=== PATIENT | female | born 1995 | race Caucasian/White ===

== ENCOUNTER 2017-02-23 08:02 | Emergency (ER) | payer OTHER ==
[~2017-02-23] VITALS: Ht 170.2 cm; Wt 104.3 kg
[2017-02-23 08:14] VITALS: BP 131/75
--- NOTE | 2017-02-23 08:20 | NUR ---
Note undone in EDM - 02/23/17 at 0832 by CRISTAL 21 F BIB SELF C/O INTERMITTENT "PRESSURE" MIDSTERNAL NON RADIATING CHEST PAIN X2 HOURS; PT STATES THE CP STARTED AT 0600, AND WAS AT 7/10, BUT CURRENTLY IS 0/10; PT ALSO C/O MILD SOB BEFORE ARRIVAL BUT CURRENTLY DENIES SOB NOW; PT DENIES ANY RECENT INJURY OR TRAUMA; DENIES N/V/D; SKIN IS PINK/WARM/DRY; AAOX4 WITH EVEN AND STEADY GAIT; LUNGS CLEAR BL; HR EVEN AND REGULAR; RR ARE EVEN AND UNLABORED; PT DENIES ANY FEVER OR COUGH AT THIS TIME; PATIENT STATES PAIN OF 0/10 AT THIS TIME; VSS; PATIENT POSITIONED FOR COMFORT; HOB ELEVATED; BED DOWN; ALL NEEDS MET AT THIS TIME; WILL CONTINUE TO MONITOR
--- NOTE | 2017-02-23 08:21 | NUR ---
Patient ambulated to bed 07.
--- NOTE | 2017-02-23 08:23 | NUR ---
21 F BIB SELF C/O INTERMITTENT "PRESSURE" MIDSTERNAL NON RADIATING CHEST PAIN X2 HOURS; PT STATES THE CP STARTED AT 0600, AND WAS AT 7/10, BUT CURRENTLY IS 0/10; PT ALSO C/O MILD SOB BEFORE ARRIVAL BUT CURRENTLY DENIES SOB NOW; PT DENIES ANY RECENT INJURY OR TRAUMA; DENIES N/V/D; SKIN IS PINK/WARM/DRY; AAOX4 WITH EVEN AND STEADY GAIT; LUNGS CLEAR BL; HR EVEN AND REGULAR; RR ARE EVEN AND UNLABORED; PT DENIES ANY FEVER OR COUGH AT THIS TIME; PATIENT STATES PAIN OF 0/10 AT THIS TIME; VSS; PATIENT POSITIONED FOR COMFORT; HOB ELEVATED; BED DOWN; ALL NEEDS MET AT THIS TIME; WILL CONTINUE TO MONITOR
--- NOTE | 2017-02-23 08:25 | NUR ---
Dr. Mcfadden evaluating patient at bedside.
--- NOTE | 2017-02-23 08:31 | NUR ---
PT TO XRAY VIA W/C WITH COAL HAULER
--- NOTE | 2017-02-23 08:48 | NUR ---
PT RETURNED FROM XRAY VIA W/C ACCOMPANIED BY PRODUCTION ASSEMBLY SUPERVISOR
[2017-02-23 08:51] LABS: HEMATOCRIT 43.9 % (36-48); HEMOGLOBIN 14.4 g/dL (12.0-16.0); MEAN CORPUSCULAR HEMOGLOBIN 31 pg (27-31); MEAN CORPUSCULAR HGB CONC 33 g/dL (33-37); MEAN CORPUSCULAR VOLUME 94 fL (80-94); PLATELET COUNT (AUTO) 209 K/uL (140-450); RED BLOOD CELL COUNT(AUTO) 4.69 MIL/uL (4.20-5.40); RED CELL DISTRIBUTION WIDTH 12.4 % (11.6-13.7); WHITE BLOOD COUNT (AUTO) 7.3 K/uL (4.8-10.8)
[2017-02-23] MEDS: KETOROLAC 30 MG/ML VIAL IM ONE (08:52)
[2017-02-23 09:02] LABS: ANION GAP 11.5 (8-16); CARBON DIOXIDE 27.3 mmol/L (21-32); CREATININE 0.8 mg/dL (0.6-1.3); POTASSIUM 3.8 mmol/L (3.5-5.1)
[2017-02-23 09:16] LABS: ALBUMIN 3.8 g/dL (3.4-5.0); THYROID STIMULATING HORMONE 2.42 uIU/mL (0.34-3.74); TOTAL BILIRUBIN 0.6 mg/dL (0.0-1.0)
[2017-02-23 09:16] LABS: APPEARANCE,URINE SL CLOUDY (CLEAR); BILIRUBIN,URINE NEGATIVE (NEGATIVE); BLOOD, URINE 3+ (NEGATIVE); COLOR,URINE YELLOW (YELLOW); LEUKOCYTE ESTERASE ,URINE 1+ (NEGATIVE); NITRITE, URINE NEGATIVE (NEGATIVE); PH,URINE 6.5 (5.0-9.0); UGLUCOSE NEGATIVE (NEGATIVE)
[2017-02-23 09:18] LABS: RBC,URINE 0-5 (RARE) /HPF (0-5)
[2017-02-23 09:26] LABS: EOSINOPHILS % (MANUAL) 3 % (0-4); LYMPHOCYTES % (MANUAL) 32 % (20-46); MONOCYTES % (MANUAL) 5 % (5-12)
[2017-02-23 10:17] VITALS: BP 129/76
--- NOTE | 2017-02-23 10:17 | NUR ---
Patient discharged with v/s stable. Written and verbal after care instructions given and explained. Patient verbalized understanding. Ambulatory with steady gait. All questions addressed prior to discharge. Advised to follow up with PMD.
== END 2017-02-23 10:17 | disposition home or self-care (01) ==
LOC: MED 08:02
DX: R07.89 Other chest pain (principal); Z90.49 Acquired absence of other specified parts of digestive tract
CPT/HCPCS: 36415; 71020; 80053; 81001; 81025; 84443; 85025; 85379; 87086; 96372; 99285; J1885

== ENCOUNTER 2017-09-10 17:40 | Emergency (ER) | payer OTHER ==
[~2017-09-10] VITALS: Ht 170.2 cm; Wt 108.9 kg
[2017-09-10 17:42] VITALS: BP 139/92
--- NOTE | 2017-09-10 17:48 | NUR ---
PT AMBULATED TO ER BED 12
--- NOTE | 2017-09-10 17:56 | NUR ---
PATIENT PRESENTS TO ED WITH LEFT SIDED NECK PAIN X TODAY . PT STATES . DENIES N/V/D; SKIN IS PINK/WARM/DRY; AAOX4 WITH EVEN AND STEADY GAIT; LUNGS CLEAR BL; HR EVEN AND REGULAR; PT DENIES ANY FEVER, CP, SOB, OR COUGH AT THIS TIME; PATIENT STATES PAIN OF 8/10 AT THIS TIME; VSS; PATIENT POSITIONED FOR COMFORT; HOB ELEVATED; BEDRAILS UP X2; BED DOWN. ER MD MADE AWARE OF PT STATUS.
[2017-09-10] MEDS ORDERED: DIAZEPAM 5 MG TAB PO ONE (18:00)
[2017-09-10] MEDS ORDERED: KETOROLAC 30 MG/ML VIAL IM ONE (18:00)
--- NOTE | 2017-09-10 18:42 | NUR ---
Patient discharged with v/s stable. Written and verbal after care instructions given and explained. Patient alert, oriented and verbalized understanding of instructions. Ambulatory with steady gait. All questions addressed prior to discharge. ID band removed. Patient advised to follow up with PMD. Rx of valium/ naprosyn given. Patient educated on indication of medication including possible reaction and side effects. Opportunity to ask questions provided and answered.
[2017-09-10 18:43] VITALS: BP 128/82
== END 2017-09-10 18:40 | disposition home or self-care (01) ==
LOC: MED 17:40
DX: S16.1XXA Strain of muscle, fascia and tendon at neck level, initial encounter (principal); R03.0 Elevated blood-pressure reading, without diagnosis of hypertension; Z90.49 Acquired absence of other specified parts of digestive tract; X58.XXXA Exposure to other specified factors, initial encounter; Y93.89 Activity, other specified; Y92.89 Other specified places as the place of occurrence of the external cause; Y99.8 Other external cause status
CPT/HCPCS: 72040; 96372; 99284; J1885

== ENCOUNTER 2018-02-02 22:08 | Emergency (ER) | payer OTHER ==
[~2018-02-02] VITALS: Ht 170.2 cm; Wt 113.9 kg
[2018-02-02 22:10] VITALS: BP 129/76
--- NOTE | 2018-02-02 23:20 | NUR ---
PT BROUGHT TO E BY IBAN COURTNEY.
--- NOTE | 2018-02-02 23:20 | NUR ---
PT C/O VAG BLEEDING, SPOTTING STARTING AT 2100, SAW OBHATTIEN YESTERDAY. PT REPORTS X6 WEEKS PREGNAT, REPORTS VAGINAL BLEEDING X1 HOUR 0/10 PAIN. G2. DENIES N/V/D; SKIN IS INTACT, PINK/WARM/DRY; AAOX4, PERRL, WITH EVEN AND STEADY GAIT; LUNGS CLEAR BL, BREATHING UNLABORED; HR EVEN AND REGULAR, BL PERIPHERAL PULSES PRESENT; BS ACTIVE X4, NO TENDERNESS TO PALPATION, NO HEPATOSPLENOMEGALLY PALPATED, RESONANT TO PERCUSSION; PT DENIES ANY FEVER, CP, SOB, OR COUGH AT THIS TIME; PT STATES 0/10 PAIN AT THIS TIME; VSS; PATIENT POSITIONED FOR COMFORT; HOB ELEVATED; BEDRAILS UP X2; BED DOWN
--- NOTE | 2018-02-02 23:29 | NUR ---
Note undone in EDM - 02/02/18 at 2330 by [email or web address] TING AT 2100, SAW VALERIO YESTERDAY. PT REPORTS X6 WEEKS PREGNAT, REPORTS VAGINAL BLEEDING X1 HOUR 0/10 PAIN. G2. PT C/O VAG BLEEDING, SPOTTING STAR DENIES N/V/D; SKIN IS INTACT, PINK/WARM/DRY; AAOX4, PERRL, WITH EVEN AND STEADY GAIT; LUNGS CLEAR BL, BREATHING UNLABORED; HR EVEN AND REGULAR, BL PERIPHERAL PULSES PRESENT; BS ACTIVE X4, NO TENDERNESS TO PALPATION, NO HEPATOSPLENOMEGALLY PALPATED, RESONANT TO PERCUSSION; PT DENIES ANY FEVER, CP, SOB, OR COUGH AT THIS TIME; PT STATES 0/10 PAIN AT THIS TIME; VSS; PATIENT POSITIONED FOR COMFORT; HOB ELEVATED; BEDRAILS UP X2; BED DOWN.
[2018-02-03 00:51] LABS: BASOPHILS % (AUTO) 0.4 % (0.0-2.0); EOSINOPHILS # (AUTO) 0.1 K/uL (0-0.4); EOSINOPHILS % (AUTO) 1.1 % (0.0-4.0); HEMATOCRIT 39.1 % (36-48); HEMOGLOBIN 13.4 g/dL (12.0-16.0); LYMPHOCYTES # (AUTO) 3.1 K/uL (2.5-16.5); LYMPHOCYTES % (AUTO) 39.2 % (20.5-51.1); MEAN CORPUSCULAR HEMOGLOBIN 32 pg (27-31); MEAN CORPUSCULAR HGB CONC 34 g/dL (33-37); MEAN CORPUSCULAR VOLUME 93.8 fL (80-94); MONOCYTES # (AUTO) 0.5 K/uL (0.8-1.0); MONOCYTES % (AUTO) 6.2 % (1.7-9.3); NEUTROPHILS # (AUTO) 4.2 K/uL (1.8-7.7); NEUTROPHILS % (AUTO) 53.1 % (42.2-75.2); PLATELET COUNT (AUTO) 200 K/uL (140-450); RED BLOOD CELL COUNT(AUTO) 4.17 MIL/uL (4.20-5.40); RED CELL DISTRIBUTION WIDTH 12.7 % (11.6-13.7); WHITE BLOOD COUNT (AUTO) 7.9 K/uL (4.8-10.8)
[2018-02-03 01:03] LABS: ANION GAP 10.3 (8-16); CARBON DIOXIDE 27.7 mmol/L (21-32); CREATININE 0.7 mg/dL (0.6-1.3)
[2018-02-03 01:09] LABS: ALBUMIN 3.6 g/dL (3.4-5.0); TOTAL BILIRUBIN 0.4 mg/dL (0.0-1.0)
[2018-02-03 01:26] LABS: BILIRUBIN,URINE NEGATIVE (NEGATIVE); BLOOD, URINE LARGE (NEGATIVE); LEUKOCYTE ESTERASE ,URINE SMALL (NEGATIVE); NITRITE, URINE NEGATIVE (NEGATIVE); PH,URINE 6.5 (5.0-9.0); UGLUCOSE NEGATIVE (NEGATIVE)
[2018-02-03 01:28] LABS: APPEARANCE,URINE SLIGHTLY CLOUDY (CLEAR); COLOR,URINE YELLOW (YELLOW); RBC,URINE TOO NUMEROUS TO COUN /HPF (0-5); WBC,URINE 16-25 (MOD) /HPF (0-5)
--- NOTE | 2018-02-03 01:33 | NUR ---
REPORT TO NABILA RHODES
[2018-02-03 03:25] VITALS: BP 116/82
== END 2018-02-03 03:25 | disposition home or self-care (01) ==
LOC: MED 22:08
DX: O26.851 Spotting complicating pregnancy, first trimester (principal); Z3A.01 Less than 8 weeks gestation of pregnancy
CPT/HCPCS: 36415; 76801; 80053; 81001; 81025; 84702; 85025; 86900; 86901; 87086; 99285; Q0092